=== PATIENT | female | born 1995 | race Caucasian/White ===

== ENCOUNTER 2023-03-25 19:23 | Emergency (ER) | payer MEDICAID ==
[~2023-03-25] VITALS: Ht 180.3 cm; Wt 62.9 kg
[~2023-03-25 19:23] MED LIST: KETOROLAC10 MG PO
[2023-03-25 20:03] VITALS: BP 113/84
[2023-03-25] MEDS ORDERED: AIMOVIG AU140 MG/1 M SQ (20:13)
[2023-03-25] MEDS ORDERED: STADOL NASA25 MG/BOT NS (20:13)
[2023-03-25] MEDS ORDERED: FLUTICASON0.05 MG/Ac NS (20:14)
[2023-03-25 21:12] LABS: BASO # 0.05 K/mm3 (0.02-0.10); EOS # 0.27 K/mm3 (0.04-0.40); EOS % 1.9 % (1.0-5.0); HEMATOCRIT 36.4 % (37.0-47.0); HEMOGLOBIN 11.6 g/dL (12.5-16.0); LYMPH# 2.36 K/mm3 (1.50-4.00); MEAN CELL VOLUME 95 fl (78-100); MEAN CORPUSCULAR HEMOGLOBIN 30 pg (27-31); MEAN CORPUSCULAR HGB CONC 32 g/dL (33-37); MEAN PLATELET VOLUME 9.2 fl (7.4-10.4); MONO # 1.39 K/mm3 (0.20-0.80); NEU # 10.48 K/mm3 (1.40-6.50); PLATELET COUNT 268 K/mm3 (130-400); RED BLOOD COUNT 3.85 M/mm3 (4.10-5.30); RED CELL DISTRIBUTION WIDTH 12.6 % (11.5-14.5); WHITE BLOOD COUNT 14.6 K/mm3 (4.8-10.8)
[2023-03-25] MEDS ORDERED: KETOROLAC10 MG PO (23:02)
[2023-03-25] MEDS ORDERED: LEVOFLOXACIN750 MG PO (23:02)
[2023-04-05] MEDS ORDERED: CEFDINIR300 MG PO (18:17)
[2023-04-05] MEDS ORDERED: LEVOFLOXACIN PO (19:27)
== END 2023-03-26 00:12 | disposition home or self-care (01) ==
LOC: ED 19:23
PROVIDERS: Family Medicine
DX: J01.00 Acute maxillary sinusitis, unspecified (principal); J01.20 Acute ethmoidal sinusitis, unspecified; J01.10 Acute frontal sinusitis, unspecified; Z28.310 Unvaccinated for COVID-19; Z86.69 Personal history of other diseases of the nervous system and sense organs
CPT/HCPCS: J1885

== ENCOUNTER 2023-04-30 15:43 | Emergency (ER) | payer MEDICAID ==
[~2023-04-30] VITALS: Ht 180.3 cm; Wt 67.2 kg
[~2023-04-30 15:43] MED LIST changes: +AIMOVIG AU140 MG/1 M SQ; +CEFDINIR300 MG PO; +FLUTICASON0.05 MG/Ac NS; +LEVOFLOXACIN PO; +LEVOFLOXACIN750 MG PO; +STADOL NASA25 MG/BOT NS
[2023-04-30 17:50] VITALS: BP 100/67
== END 2023-04-30 17:59 | disposition home or self-care (01) ==
LOC: ED 15:43
DX: R07.81 Pleurodynia (principal); Z28.310 Unvaccinated for COVID-19

== ENCOUNTER → 2023-08-09 | Outpatient (CLI) | payer MEDICAID ==
[~2023-08-09] MED LIST changes: +CYCLOBENZ5 MG PO; +MIXED AMPHETAMI10 M1 PO
== END ==
LOC: RAD 10:06
DX: M25.531 Pain in right wrist (principal)

== ENCOUNTER 2024-01-29 15:36 | Emergency (ER) | payer MEDICAID ==
[~2024-01-29] VITALS: Ht 180.3 cm; Wt 66.0 kg
[2024-01-29] MEDS ORDERED: STADOL NASA25 MG/BOT NS (15:43)
[2024-01-29] MEDS ORDERED: HYDROXYZINE HCL25 M1 PO (15:43)
[2024-01-29] MEDS ORDERED: DESVENLAFAXINE100 MG PO (15:44)
[2024-01-29] MEDS ORDERED: Ketorolac 30 MG/ML VIAL IV ONE (16:00)
[2024-01-29] MEDS ORDERED: diphenhydrAMINE 50 MG/ML 1 ML VIAL IV ONE (16:00)
[2024-01-29] MEDS ORDERED: NS 1,000 ML IV SCH (16:00)
[2024-01-29 17:22] VITALS: BP 117/61
== END 2024-01-29 17:20 | disposition home or self-care (01) ==
LOC: ED 15:36
DX: G43.909 Migraine, unspecified, not intractable, without status migrainosus (principal)
CPT/HCPCS: J0780; J1200; J1885; J7030

== ENCOUNTER 2024-04-06 13:59 | Emergency (ER) | payer MEDICAID ==
[~2024-04-06] VITALS: Ht 177.8 cm; Wt 72.8 kg
[~2024-04-06 13:59] MED LIST changes: +DESVENLAFAXINE100 MG PO; +HYDROXYZINE HCL25 M1 PO
[2024-04-06 14:05] VITALS: BP 121/85
[2024-04-06] MEDS ORDERED: CETIRIZINE HCL10 MG PO (14:05)
[2024-04-06] MEDS ORDERED: MEDROL 4MG DOSPA4 MG PO (14:05)
[2024-04-06] MEDS ORDERED: AMOXICILLIN 50500 MG PO (14:41)
== END 2024-04-06 14:50 | disposition home or self-care (01) ==
LOC: ED 13:59
DX: J01.90 Acute sinusitis, unspecified (principal)